=== PATIENT | male | born 1950 | race Caucasian/White ===

== ENCOUNTER 2020-07-15 17:14 | Emergency (ER) | payer BC ==
[~2020-07-15] VITALS: Ht 180.3 cm; Wt 90.9 kg
[2020-07-15 17:34] VITALS: BP 136/73
[2020-07-15] MEDS ORDERED: ketorolac trometh. 30mg/ml inj. IM ONE (19:35)
--- NOTE | 2020-07-15 19:52 | NUR ---
Pt discharged before time for medication reassessment
== END 2020-07-15 19:57 | disposition home or self-care (01) ==
LOC: ER 17:15
DX: R07.81 Pleurodynia (principal); R07.89 Other chest pain; Z88.0 Allergy status to penicillin
CPT/HCPCS: 71045; 96372; 99283; J1885

== ENCOUNTER 2020-12-05 12:34 | Emergency (ER) | payer BC ==
[~2020-12-05] VITALS: Ht 175.3 cm; Wt 79.1 kg
[2020-12-05 13:17] LABS: BASOPHILS % (AUTO) 0.7 % (0-1); EOSINOPHILS # (AUTO) 0.1 X10'3 (0-0.9); EOSINOPHILS % (AUTO) 1.9 % (0-6); HEMATOCRIT 40.3 % (42.0-52.0); HEMOGLOBIN 13.6 g/dl (14.0-17.9); LYMPHOCYTES # (AUTO) 1.4 X10'3 (1.1-4.8); LYMPHOCYTES % (AUTO) 22.5 % (21-51); MEAN CORPUSCULAR HEMOGLOBIN 34.2 PG (27.0-31.0); MEAN CORPUSCULAR HGB CONC 33.8 g/dL (33.0-36.5); MEAN CORPUSCULAR VOLUME 101.1 FL (78-98); MEAN PLATELET VOLUME 7.7 FL (7.4-10.4); MONOCYTES # (AUTO) 0.6 X10'3 (0-0.9); NEUTROPHILS # (AUTO) 4.2 X10'3 (1.8-7.7); NEUTROPHILS % (AUTO) 65.9 % (42-75); PLATELET COUNT 340 X10'3 (140-440); RED BLOOD COUNT 3.98 X10'6 (4.70-6.10); RED CELL DISTRIBUTION WIDTH 14.1 % (11.5-14.5); WHITE BLOOD COUNT 6.4 X10'3 (4.5-11.0)
[2020-12-05 13:34] LABS: ALANINE AMINOTRANSFERASE 21 U/L (12-78); ALBUMIN 3.5 G/DL (3.4-5.0); ALBUMIN/GLOBULIN RATIO 0.9 (1.1-1.5); ALKALINE PHOSPHATASE 77 IU/L (46-116); ANION GAP 6 (8-16); ASPARTATE AMINO TRANSFERASE 16 U/L (10-37); BILIRUBIN,TOTAL 0.4 MG/DL (0.1-1.0); BLOOD UREA NITROGEN 15 MG/DL (7-18); CHLORIDE 104 MMOL/L (99-107); GLUCOSE 112 MG/DL (70-104); SODIUM 142 MMOL/L (135-145); TOTAL CARBON DIOXIDE 31.7 MMOL/L (24-32); TOTAL PROTEIN 7.3 G/DL (6.4-8.2); eGFR 74 ML/MIN
[2020-12-05 16:01] LABS: PARTIAL THROMBOPLASTIN TIME 27 SECONDS (22-32)
[2020-12-05] MEDS ORDERED: heparin 10,000 units/1 ML INJ IV ONE ×2 (16:45→16:50)
[2020-12-05] MEDS ORDERED: heparin 25,000 UNIT/250ml bag 250 ML IV SCH (16:45)
[2020-12-05] MEDS ORDERED: heparin 10,000 units/1 ML INJ IV PRN (16:45)
[2020-12-05] MEDS ORDERED: apixaban 5mg tablet PO STA (17:07)
[2020-12-05] MEDS ORDERED: APIX5TAB3 PO (17:18)
[2020-12-05 17:51] VITALS: BP 179/79
--- NOTE | 2020-12-05 17:54 | NUR ---
Patient seen and assessed by provider.
== END 2020-12-05 17:55 | disposition home or self-care (01) ==
LOC: ER 12:35
DX: I82.401 Acute embolism and thrombosis of unspecified deep veins of right lower extremity (principal); Z88.0 Allergy status to penicillin; Z79.899 Other long term (current) drug therapy
CPT/HCPCS: 36415; 80053; 85025; 85610; 85730; 93970; 99284